=== PATIENT | male | born 1945 | race Caucasian/White ===

== ENCOUNTER → 2017-11-23 | Outpatient (CLI) | payer MEDICARE, OTHER ==
--- NOTE | 2017-11-23 14:03 | ECHOS ---
STRESS ECHOCARDIOGRAM INDICATIONS: Chest pain. BASELINE HEART RATE: 63 BASELINE BLOOD PRESSURE: 140/72 MAXIMUM HEART RATE: 132 MAXIMUM BLOOD PRESSURE: 190/86 85% MPHR: 124 100% MPHR: 146 METS: 7.6 MAXIMUM STAGE REACHED: II TOTAL EXERCISE TIME: 7:16 CLINICAL INFORMATION: Patient was exercised for a total period of 7 minutes. The peak heart rate of 132 was achieved. Maximum blood pressure 190/86 mmHg was noted. Resting EKG shows normal sinus rhythm with normal NH interval and QRS duration and normal ST-T waves. During exercise, about [address]-segment depression is noted in the inferolateral leads. This was not associated with any symptoms of angina. The ST-segment depression persisted for about 2 minutes in the postexercise period. The baseline echocardiographic images reveals normal left ventricular chamber size with normal left ventricular systolic function in the immediate post exercise period. Normal increase in the wall thickness and contractility is noted. FINAL IMPRESSION: 1. This stress echocardiographic study is negative for stress-induced ischemia. 2. Patient did not complain of any chest pain during the test. Patient developed about [address]-segment depression at the peak exercise, which could be suggestive of ischemia versus hypertension. Clinical correlation is suggested. MMODL / IJN: [id number] /
== END | disposition home or self-care (01) ==
LOC: RADNMMAIN 08:49
PROVIDERS: ATTEND Internal Medicine
DX: R07.9 Chest pain, unspecified (principal); I10 Essential (primary) hypertension
CPT/HCPCS: 93351

== ENCOUNTER → 2020-10-14 | Outpatient (CLI) | payer MEDICARE ==
[2020-10-15 01:59] LABS: African American GFR (CKD) 95.8 (60.0-200.0); Anion Gap 11.3 mmol/L (4.00-12.00); Carbon Dioxide 24.7 mmol/L (21.6-31.8); Non-African American GFR(CKD) 82.7 (60.0-200.0); Potassium 4.3 mmol/L (3.5-5.5)
== END | disposition home or self-care (01) ==
LOC: LABWHC1 11:06
PROVIDERS: ATTEND Internal Medicine Interventional Cardiology
DX: I10 Essential (primary) hypertension (principal)
CPT/HCPCS: 36415; 80051; 82565; 84520

== ENCOUNTER → 2020-11-10 | Outpatient (CLI) | payer MEDICARE ==
--- NOTE | 2020-11-10 17:50 | CONS ---
CONSULTATION REASON FOR CONSULTATION: Nighttime shortness of breath. This is a 75-year-old male patient who has been experiencing nighttime shortness of breath. The patient was already evaluated by Cardiology, and his cardiac workup was essentially unremarkable. For that reason, he was referred to me for further evaluation. The patient is a bit inconsistent in his history. His main complaint is some shortness of breath that is occurring at nighttime. However, this is not really occurring during sleep. He tells me that he is able to generate sleep without any major difficulties. No orthopnea. Within 3 hours of falling asleep he typically wakes up and he watches TV and he is able to generate sleep and go back to sleep again. Occasionally, he is experiencing events where he is unable to breathe in through his nose or his mouth and he feels a squeezing sensation. He gets short of breath at rest and even with activity. It is not associated with any cough or sputum production. It is not really associated with sleep. No heartburn. No reflux. No wheezing. No bronchial asthma. No aspiration. It is occurring a few times a week, yet not on a consistent basis. No exacerbating factor. No relieving factors, and symptoms typically go away within an hour or so. As such, the patient was referred to me. As mentioned, cardiac workup has been essentially unremarkable. No cardiac arrhythmias noted. No swelling in the lower extremities. No valvular heart disease. No pulmonary embolism. No COPD and he is a lifetime nonsmoker. He has chronic hypersomnia, goes to bed around 8 p.m. and wakes up at 5 a.m. in the morning. He has significant crowding of the posterior pharynx with a Mallampati class 4. No symptoms of restlessness in the lower extremities. No sleepwalking or sleeptalking. No other parasomnias. PAST MEDICAL HISTORY: Hypertension and BPH. PAST SURGICAL HISTORY: Past surgical history includes appendectomy in 1952, multiple bilateral knee arthroscopies, laceration and scrotal repair, excision of the bursa from the right elbow, excision of a granuloma from the right thigh, bilateral total knee replacement, circumcision, colonoscopy, excision of a lipoma from the right rib cage. His echocardiogram and stress test were done in September of 2020. He also had bilateral trigger finger release in May of 2020. MEDICATION: Medication includes: 1. Atenolol 25 mg p.o. b.i.d. 2. Diovan/hydrochlorothiazide 30/25 one tablet a day. 3. Aspirin 81 mg p.o. daily. 4. Osteo Bi-Flex 1 tablet a day. 5. Pravachol 40 mg p.o. daily. 6. Aleve p.r.n. 7. Vitamin B12. 8. Flomax 0.4 mg at bedtime. 9. Proscar 5 mg p.o. daily. 10.Norvasc 5 mg p.o. daily. SOCIAL HISTORY: Nonsmoker. No use of alcoholism. No history of IV drugs. FAMILY HISTORY: Father at the age of 64 from CVA. Mother at the age of 88 from congestive heart failure. REVIEW OF SYSTEMS: Fourteen-point review of system was done. Positive findings are all mentioned above in the history of present illness. PHYSICAL EXAMINATION: VITAL SIGNS: BP is 134/69, pulse 60, respirations 16, temperature 98.5, saturation 95% on room air. Height is 5 feet 6 inches, weight is 173, and neck size is 15-1/2 inches. Weight is 173. GENERAL APPEARANCE: Calm, comfortable. No acute distress. HEAD: Atraumatic, normocephalic. NECK: Supple. No JVD. No goiter or neck masses. Mallampati class 4. LUNGS: Clear to auscultation. HEART: Heart sounds are regular rate and rhythm. Normal S1, S2. No S3, S4. No murmurs. ABDOMEN: Soft, nontender. No organomegaly. EXTREMITIES: No edema. No cyanosis or clubbing. IMPRESSION: 1. Episodic nocturnal dyspnea, not related to sleep, not related to activity. Not related to any other exacerbating or relieving factors. Could be anxiety. Would like to rule out any other comorbidities such as sleep breathing disorder or any other lung diseases contributing to his shortness of breath. Cardiac workup essentially has been unremarkable. Based on the reported history, I am unable to fit into any category of diseases that could explain his symptoms. 2. Hypertension. 3. Benign prostatic hypertrophy. PLAN: 1. Proceed with a home sleep study to rule out any sleep breathing disorder. 2. The patient will be referred also to my pulmonary clinic, where he is going to have a chest x-ray and a pulmonary function test. 3. Will obtain copies of the cardiac workup that was done at Dr. Guerrier's office. 4. Will make further recommendations based on above-mentioned workup. MMODL / IJN: [id number] /
== END ==
LOC: SLEEP 14:55
PROVIDERS: ATTEND Internal Medicine Critical Care Medicine
DX: R06.00 Dyspnea, unspecified (principal); I10 Essential (primary) hypertension; N40.0 Benign prostatic hyperplasia without lower urinary tract symptoms; Z79.899 Other long term (current) drug therapy
CPT/HCPCS: 99211

== ENCOUNTER → 2020-11-25 | Outpatient (CLI) | payer MEDICARE ==
--- NOTE | 2020-11-25 12:36 | XR ---
EXAMINATION TYPE: XR lumbar spine 2 or 3V DATE OF EXAM: 11/25/2020 COMPARISON: None HISTORY: Low back pain TECHNIQUE: 3 view lumbar spine FINDINGS: There are 5 lumbar-type vertebral bodies. Pedicles are intact. Diffuse loss of disc height is present throughout the lumbar spine. Spondylosis is present. Scoliosis is present. Vertebral body heights appear preserved. No acute osseous abnormality is evident. IMPRESSION: 1. Spondylosis and scoliosis within the lumbar spine. 2. Diffuse loss of disc height throughout the lumbar spine.
== END | disposition home or self-care (01) ==
LOC: RADXRMAIN 10:55
PROVIDERS: ATTEND Internal Medicine
DX: M47.816 Spondylosis without myelopathy or radiculopathy, lumbar region (principal); M41.86 Other forms of scoliosis, lumbar region
CPT/HCPCS: 72100

== ENCOUNTER → 2021-02-09 | Outpatient (CLI) | payer MEDICARE ==
--- NOTE | 2021-02-09 16:27 | PN ---
PROGRESS NOTE 75-year-old male patient who was originally referred to me for evaluation of some nocturnal episodes of shortness of breath. Note that these episodes have essentially recovered. The patient is still sleeping in his bed and around 1 or 2 am in the morning, he would wake up and move to a recliner where he watches TV and he sort of winds down. He is able to generate sleep without any major difficulties. No significant hypersomnia or sleepiness during the day. 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 The home sleep study showed a mild component of obstructive sleep apnea with an AHI of 14. Note that the patient had a total of 13 obstructive events and 55 mixed events. There was another 36 events that were central. The AHI came back at 15. Minimum pulse ox was 85 percent and this patient spent 25% of sleep time at a pulse ox of 88% and below. I discussed the findings with the patient. Clinically, the patient denied having any major disturbance in sleep quality. He was waking up refreshed and alert and was not taking naps during the day. No nighttime choking or gasping. No nighttime heartburn. No palpitations or chest pain for now. Episodes of shortness of breath also recovered. PHYSICAL EXAMINATION: His current vital signs are as follows. BP is 128/62, pulse 62, respirations 16, temperature 97.2, saturation 96% on room air. Height is 5 feet 6 inches, weight is 178 and BMI is 28.2. GENERAL APPEARANCE: Calm, comfortable. Head atraumatic normocephalic. NECK: Supple. No JVD. No goiter or neck masses. Mallampati class 4. LUNGS: Diminished, otherwise clear. HEART: Heart sounds are regular rate and rhythm. Normal S1, S2. No S3, no murmurs. ABDOMEN: Soft, nontender. No organomegaly. EXTREMITIES: No edema. No cyanosis or clubbing. IMPRESSION: 1. Mild obstructive sleep apnea, AHI of 15. 2. Mild nocturnal oxygen desaturation. 3. Nocturnal episodes of dyspnea, recovered and the patient is currently asymptomatic. 4. Hypertension. 5. Benign prostatic hypertrophy. PLAN: I had a lengthy discussion with the patient. We discussed the pros and cons of treatment of mild obstructive sleep apnea. Clinically, the patient feels that he is doing well and he does not seem to be ready to proceed with CPAP therapy at this point in time. I think that is possible as long as he optimizes sleep hygiene measures and he is able to sleep with his head of the bed at the incline at around 20-30 degrees. The patient is already doing that by moving to a recliner in the middle of the night. He is avoiding to drink alcohol at least 3 hours prior to going to sleep. He is maintaining good sleep schedule. I asked him to contact me back if there is any change in his condition such as development of sleep fragmentation, increased fatigue or sleepiness during the day and/or any other cardiovascular complications. For now, he is not having any episodes of shortness of breath at night and he does not seem to be interested in CPAP therapy. I think that is fine as long as his condition remains unchanged. SIOBHAN / ERLINDAN: [id number] /
== END ==
LOC: SLEEP 14:42
PROVIDERS: ATTEND Internal Medicine Critical Care Medicine
DX: G47.33 Obstructive sleep apnea (adult) (pediatric) (principal); G47.36 Sleep related hypoventilation in conditions classified elsewhere; I10 Essential (primary) hypertension; N40.0 Benign prostatic hyperplasia without lower urinary tract symptoms

== ENCOUNTER → 2023-02-23 | Outpatient (CLI) | payer MEDICARE ==
--- NOTE | 2023-02-23 11:07 | XR ---
EXAMINATION TYPE: XR Hip Bilateral Complete DATE OF EXAM: 02/23/2023 CLINICAL HISTORY: Right hip pain. Pain for one year. TECHNIQUE: AP and frogleg views of the bilateral hips are obtained. COMPARISON: None. FINDINGS: There is no acute fracture/dislocation evident in either hip. Mild axial joint space loss bilaterally is more prominent in the right hip. Moderate acetabular spurring in the right hip. More m ild spurring in the left hip is noted The overlying soft tissue appears unremarkable bilaterally. Fe moral head shapes are maintained bilaterally. IMPRESSION: As above. Increased degenerative change right hip versus left hip noted.
== END | disposition home or self-care (01) ==
LOC: RADXRMAIN 10:27
PROVIDERS: ATTEND Internal Medicine
DX: M16.0 Bilateral primary osteoarthritis of hip (principal)
CPT/HCPCS: 73521

== ENCOUNTER → 2023-06-09 | Outpatient (CLI) | payer MEDICARE ==
--- NOTE | 2023-06-09 12:39 | CT ---
EXAMINATION TYPE: CT angio chest DATE OF EXAM: 06/09/2023 12:01 PM COMPARISON: None HISTORY: R/O PE, SOB. CT DLP: 583 mGycm Automated exposure control for dose reduction was used. CONTRAST: CTA scan of the thorax is performed with IV Contrast, patient injected with 100 mL of Isovue 370, pul monary embolism protocol. . FINDINGS: There is mild interstitial density and groundglass density in the lung bases posteriorly most likely representing atelectasis or chronic interstitial changes. There is no airspace consolidation. There is no suspicious lung mass or nodule. There is no pleural effusion or pneumothorax. The great vessels chest are normal there is no mediastinal, hilar or axillary adenopathy. There are no filling defects within the pulmonary arteries or segmental branches. Limited scanning through the upper abdomen reveals no gross abnormality. No focal osseous lesions are seen. IMPRESSION: 1. No evidence of pulmonary embolism. 2. Mild by basilar posterior infiltrates which likely represent mild atelectasis or possibly mild int erstitial changes. 3. No definite acute cardiopulmonary disease.
== END | disposition home or self-care (01) ==
LOC: RADCTMAIN 11:29
PROVIDERS: ATTEND Internal Medicine
DX: R91.8 Other nonspecific abnormal finding of lung field (principal); R07.9 Chest pain, unspecified; R06.02 Shortness of breath
CPT/HCPCS: 71275; Q9967

== ENCOUNTER → 2024-09-25 | Outpatient (CLI) | payer MEDICARE ==
--- NOTE | 2024-09-26 13:58 | MR ---
EXAMINATION TYPE: MR lumbar spine wo con DATE OF EXAM: 09/25/2024 4:18 PM COMPARISON: 09/25/2024.. 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 IV Contrast: mL (None, if empty) FINDINGS: Alignment: The lumbar vertebral bodies have preserved heights with grade 1 anterolisthesis of L4 on L 5. Cord: The conus medullaris and the distal spinal cord appear unremarkable with regards to their signa l intensity and morphology. Bones/Discs: Moderate to severe degeneration changes throughout the spine with osteophyte formation a nd facet joint arthropathy. Intervertebral disc signal is maintained. No abnormal inversion recovery signal to suggest bony edema. T12-L1: No evidence of significant spinal canal stenosis or neural foraminal stenosis. L1-L2: No evidence of significant spinal canal stenosis. Facet joint arthropathy moderate bilateral n eural foraminal stenosis. L2-L3: Disc bulge and facet joint arthropathy with moderate to severe spinal canal stenosis and cauda equina bunching and severe bilateral neural foraminal stenosis. L3-L4: Disc bulge and facet joint arthropathy without significant spinal canal stenosis and severe bi lateral neural foraminal stenosis. L4-L5: Disc uncovering from grade 1 anterolisthesis and facet joint arthropathy with moderate spinal canal stenosis and severe right and [id number] left bilateral neural foraminal stenosis. L5-S1: The disc has a rounded posterior morphology without significant spinal canal stenosis. Facet j oint arthropathy with severe bilateral neural foraminal stenosis. No significant spinal canal or neural foraminal stenosis in the remainder of the visualized levels. Other findings: Bilateral simple appearing renal cysts. Follow-up recommended. IMPRESSION: 1. No definitive evidence of disc herniation 2. Severe facet arthropathy and disc degeneration with multilevel moderate and severe neural foramin al stenosis as described above. Findings worse at L5-S1 with severe bilateral, L4-L5 with severe righ t, L3-L4 with severe bilateral, L4-L5 moderate severe left neural foraminal stenosis. 3. Grade 1 anterolisthesis L4 and L5. [facility], , 09/26/2024 1:56 PM
== END | disposition home or self-care (01) ==
LOC: RADMRIMAIN 14:55
PROVIDERS: ATTEND Internal Medicine
DX: M48.061 Spinal stenosis, lumbar region without neurogenic claudication (principal); M51.369 Other intervertebral disc degeneration, lumbar region without mention of lumbar back pain or lower extremity pain; M47.817 Spondylosis without myelopathy or radiculopathy, lumbosacral region; M43.16 Spondylolisthesis, lumbar region
CPT/HCPCS: 72148